=== PATIENT | female | born 1945 | race Caucasian/White ===

== ENCOUNTER 2017-11-29 19:25 | Inpatient (IN) | payer MEDICARE ==
[~2017-11-29] VITALS: Ht 165.1 cm; Wt 76.2 kg
[2017-11-29] MEDS ORDERED: GABA-827 PO (19:41)
[2017-11-29] MEDS ORDERED: FLUT1DIS5 IH (19:41)
[2017-11-29] MEDS ORDERED: ATEN25TA PO (19:42)
[2017-11-29] MEDS ORDERED: METF500T4 PO (19:42)
[2017-11-29] MEDS ORDERED: ALBU0.63 NEB (19:42)
[2017-11-29] MEDS ORDERED: PLEASE ENTER ALLERGIES MC SCH (20:00)
[2017-11-29] MEDS ORDERED: SODIUM CHLORIDE FLUSH 10ML SYR IVF ONE (20:00)
[2017-11-29 20:11] LABS: BASOPHILS # (AUTO) 0.05 x10^3/uL (0-0.1); BASOPHILS % (AUTO) 0 % (0-1); EOSINOPHILS # (AUTO) 0.09 x10^3/uL (0-0.4); EOSINOPHILS % (AUTO) 1 % (1-7); LYMPHOCYTES # (AUTO) 2.61 x10^3/uL (1-3.4); LYMPHOCYTES % (AUTO) 19 % (22-44); MD NO; MEAN CORPUSCULAR HEMOGLOBIN 29.4 pg (27.0-34.8); MEAN CORPUSCULAR HGB CONC 33.7 g/dL (32.4-35.8); MEAN CORPUSCULAR VOLUME 87.3 fL (80-100); MEAN PLATELET VOLUME 8.3 fL (7.4-10.4); MONOCYTES # (AUTO) 0.71 x10^3/uL (0.2-0.8); MONOCYTES % (AUTO) 5 % (2-9); NEUTROPHILS # (AUTO) 9.98 x10^3/uL (1.8-6.8); NEUTROPHILS % (AUTO) 74 % (42-75); PLATELET COUNT 288 x10^3/uL (130-400); RED BLOOD COUNT 4.75 x10^6/uL (3.82-5.3); RED CELL DISTRIBUTION WIDTH 14.6 % (9.6-15.2)
[2017-11-29 20:14] LABS: PROTHROMBIN TIME 10.3 Seconds (9.6-11.5)
[2017-11-29 20:18] LABS: ALBUMIN 3.4 g/dL (3.4-5.0); ANION GAP 5 mmol/L (5-15); CALCIUM 8.3 mg/dL (8.5-10.1); CHLORIDE 106 mmol/L (98-107); CREATININE 0.57 mg/dL (0.55-1.02)
[2017-11-29] MEDS ORDERED: SODIUM CHLORIDE FLUSH 10ML SYR IVF PRN (21:00)
[2017-11-29] MEDS ORDERED: GLUCAGON 1 MG IM PRN (21:30)
[2017-11-29] MEDS ORDERED: ONDANSETRON 2MG/ML, 2ML IVPush PRN (21:30)
[2017-11-29] MEDS ORDERED: DEXTROSE 50%, 50ML SYRINGE IVPush PRN (21:30)
[2017-11-29] MEDS ORDERED: morphine SULFATE 10 MG/ML, 1ML IVPush PRN (21:30)
[2017-11-29] MEDS ORDERED: ACETAMINOPHEN 325 MG TABLET PO PRN (21:30)
[2017-11-29] MEDS ORDERED: DEXTROSE 4 GM TAB.CHEW PO PRN (21:30)
[2017-11-29] MEDS ORDERED: ALBUTEROL SULFATE 2.5MG/0.5ML NEB PRN (21:30)
[2017-11-29 22:20] VITALS: BP 143/101
[2017-11-29] MEDS: HEPARIN 5,000 UNITS/ML, 1ML SQ SCH (22:45)
[2017-11-29] MEDS: SODIUM CHLORIDE 0.9% 1,000 ML IV SCH (22:45)
[2017-11-29] MEDS: GABAPENTIN 400 MG CAPSULE PO SCH (22:45)
[2017-11-29] MEDS: metFORMIN 500 MG TABLET PO SCH (22:45)
[2017-11-29] MEDS: OXYcodone IR 5MG TABLET PO PRN (23:03)
[2017-11-29] MEDS ORDERED: NAPR220C2 PO (23:37)
[2017-11-29] MEDS: INSULIN LISPRO 100 UNITS/ML, PEN SQ-INSULIN SCH (23:47)
[2017-11-30 04:01] VITALS: BP 158/71
[2017-11-30 05:24] LABS: BASOPHILS # (AUTO) 0.03 x10^3/uL (0-0.1); BASOPHILS % (AUTO) 0 % (0-1); EOSINOPHILS # (AUTO) 0.09 x10^3/uL (0-0.4); EOSINOPHILS % (AUTO) 1 % (1-7); LYMPHOCYTES # (AUTO) 2.31 x10^3/uL (1-3.4); LYMPHOCYTES % (AUTO) 27 % (22-44); MD NO; MEAN CORPUSCULAR HEMOGLOBIN 29.4 pg (27.0-34.8); MEAN CORPUSCULAR HGB CONC 33.6 g/dL (32.4-35.8); MEAN CORPUSCULAR VOLUME 87.4 fL (80-100); MEAN PLATELET VOLUME 8.4 fL (7.4-10.4); MONOCYTES # (AUTO) 0.52 x10^3/uL (0.2-0.8); MONOCYTES % (AUTO) 6 % (2-9); NEUTROPHILS # (AUTO) 5.72 x10^3/uL (1.8-6.8); NEUTROPHILS % (AUTO) 66 % (42-75); PLATELET COUNT 244 x10^3/uL (130-400); RED BLOOD COUNT 4.51 x10^6/uL (3.82-5.3); RED CELL DISTRIBUTION WIDTH 14.6 % (9.6-15.2)
[2017-11-30 05:28] LABS: CHLORIDE 103 mmol/L (98-107)
[2017-11-30] MEDS: HEPARIN 5,000 UNITS/ML, 1ML SQ SCH ×2 (05:30→07:11)
[2017-11-30 05:32] LABS: ANION GAP 7 mmol/L (5-15); CALCIUM 8.2 mg/dL (8.5-10.1); CREATININE 0.53 mg/dL (0.55-1.02)
[2017-11-30] MEDS: GABAPENTIN 400 MG CAPSULE PO SCH ×4 (06:31→20:21)
[2017-11-30] MEDS: OXYcodone IR 5MG TABLET PO PRN ×4 (06:31→22:58)
[2017-11-30] MEDS ORDERED: INSULIN LISPRO 100 UNITS/ML, PEN SQ-INSULIN SCH ×2 (07:00→22:45)
[2017-11-30 07:25] VITALS: BP 144/73
[2017-11-30] MEDS: INSULIN LISPRO 100 UNITS/ML, PEN SQ-INSULIN SCH ×4 (07:48→20:51)
[2017-11-30] MEDS: POLYETHYLENE GLYCOL 17 GM PACKET PO SCH (07:48)
[2017-11-30] MEDS: metFORMIN 500 MG TABLET PO SCH ×2 (07:48→20:21)
[2017-11-30] MEDS: ATENOLOL 25 MG TABLET PO SCH (07:54)
[2017-11-30 08:53] LABS: HEMOGLOBIN A1C 7.5 % (4.2-6.3)
[2017-11-30] MEDS: SODIUM CHLORIDE 0.9% 1,000 ML IV SCH ×2 (11:24→20:21)
[2017-11-30] MEDS: SODIUM CHLORIDE FLUSH 10ML SYR IVF SCH ×2 (11:24→20:21)
[2017-11-30] MEDS: SALMETEROL IH SCH (11:24)
[2017-11-30] MEDS: FLUTICASONE IH SCH (11:24)
[2017-11-30] MEDS ORDERED: ONDANSETRON 2MG/ML, 2ML ONE (11:44)
[2017-11-30] MEDS ORDERED: ONDANSETRON ODT 4 MG PO PRN (12:00)
[2017-11-30] MEDS ORDERED: ONDANSETRON 2MG/ML, 2ML IVPush PRN (12:00)
[2017-11-30 12:44] VITALS: BP 137/97
[2017-11-30 19:46] VITALS: BP 185/67
[2017-11-30] MEDS ORDERED: hydrOXyzine 50MG TABLET PO PRN (20:00)
[2017-12-01 01:29] VITALS: BP 153/69
[2017-12-01] MEDS: GABAPENTIN 400 MG CAPSULE PO SCH ×4 (06:15→21:04)
[2017-12-01] MEDS: OXYcodone IR 5MG TABLET PO PRN (06:15)
[2017-12-01] MEDS: SODIUM CHLORIDE 0.9% 1,000 ML IV SCH ×2 (06:15→13:08)
[2017-12-01] MEDS: INSULIN LISPRO 100 UNITS/ML, PEN SQ-INSULIN SCH ×4 (06:49→23:00)
[2017-12-01 06:56] VITALS: BP 136/68
[2017-12-01 07:58] LABS: ALANINE AMINOTRANSFERASE 23 U/L (12-78); ANION GAP 6 mmol/L (5-15); CHLORIDE 103 mmol/L (98-107); CREATININE 0.65 mg/dL (0.55-1.02)
[2017-12-01 08:00] LABS: ALKALINE PHOSPHATASE 80 U/L (45-117); BILIRUBIN,TOTAL 0.2 mg/dL (0.2-1.0); TOTAL PROTEIN 6.6 g/dL (6.4-8.2)
[2017-12-01] MEDS: ATENOLOL 25 MG TABLET PO SCH (08:59)
[2017-12-01] MEDS: SODIUM CHLORIDE FLUSH 10ML SYR IVF SCH ×2 (09:00→21:04)
[2017-12-01] MEDS: metFORMIN 500 MG TABLET PO SCH ×2 (09:00→21:04)
[2017-12-01] MEDS: SALMETEROL IH SCH (09:00)
[2017-12-01] MEDS: POLYETHYLENE GLYCOL 17 GM PACKET PO SCH (09:00)
[2017-12-01] MEDS: FLUTICASONE IH SCH (09:00)
[2017-12-01] MEDS ORDERED: KETOROLAC 60 MG/2 ML ONE (12:14)
[2017-12-01] MEDS ORDERED: TRANEXAMIC ACID 100 MG/ML, 10ML ONE ×4 (12:14→12:15)
[2017-12-01] MEDS ORDERED: EPINEPHRINE 1 MG/ML, 1ML ONE (12:15)
[2017-12-01] MEDS ORDERED: ROPIvacaine/PF 0.2%, 20 ML ONE (12:15)
[2017-12-01] MEDS ORDERED: SODIUM CHLORIDE 0.9% 100 ML ONE (12:15)
[2017-12-01] MEDS ORDERED: FENTANYL PF 250 MCG/5ML ONE (13:01)
[2017-12-01] MEDS ORDERED: MIDAZOLAM 1 MG/ML, 2ML ONE (13:01)
[2017-12-01] MEDS ORDERED: LIDOCAINE-MPF 2% ,5ML ONE (13:02)
[2017-12-01] MEDS ORDERED: LIDOCAINE 4%, 4 ML SYR/CANN TP ONE (13:02)
[2017-12-01] MEDS ORDERED: DEXAMETHASONE 4 MG/ML, 1ML ONE (13:02)
[2017-12-01] MEDS ORDERED: SUCCINYLCHOLINE 20 MG/ML, 10ML ONE (13:02)
[2017-12-01] MEDS ORDERED: PROPOFOL 10 MG/ML, 20ML ONE (13:02)
[2017-12-01] MEDS ORDERED: CEFAZOLIN 1,000 MG ONE (13:02)
[2017-12-01] MEDS ORDERED: ONDANSETRON 2MG/ML, 2ML ONE (13:02)
[2017-12-01] MEDS ORDERED: PHENYLEPHRINE 10 MG/ML ONE (13:02)
[2017-12-01] MEDS ORDERED: morphine SULFATE 10 MG/ML, 1ML IV PRN (14:00)
[2017-12-01] MEDS ORDERED: ONDANSETRON 2MG/ML, 2ML IVPush PRN (14:00)
[2017-12-01] MEDS ORDERED: ACETAMINOPHEN 325 MG TABLET PO PRN (14:00)
[2017-12-01] MEDS ORDERED: HYDROcodone/APAP 7.5-325MG/15ML UDC PO PRN (14:00)
[2017-12-01] MEDS ORDERED: FENTANYL PF 100 MCG/2ML IV PRN (14:00)
[2017-12-01] MEDS ORDERED: OXYcodone 5 MG/5 ML ORAL.SOL UDC PO PRN (14:00)
[2017-12-01] MEDS ORDERED: TRANEXAMIC ACID 100 MG/ML, 10ML IV STA (14:54)
[2017-12-01] MEDS ORDERED: TRANEXAMIC ACID 1,000 MG in SODIUM CHLORIDE 0.9% 100 ML IV ONE (15:30)
[2017-12-01] MEDS ORDERED: LABETALOL 5MG/ML, 20ML ONE (16:25)
[2017-12-01] MEDS ORDERED: OXYcodone 5 MG/5 ML ORAL.SOL UDC ONE (16:44)
[2017-12-01] MEDS ORDERED: LORazepam 2 MG/ML, 1ML IVPush PRN ×2 (17:00→17:30)
[2017-12-01 17:25] VITALS: BP 149/75
[2017-12-01] MEDS ORDERED: hydrOXyzine 50MG TABLET PO PRN (17:30)
[2017-12-01] MEDS ORDERED: ENALAPRILAT 1.25 MG/ML, 2ML IV PRN (17:30)
[2017-12-01] MEDS ORDERED: LABETALOL 5MG/ML, 20ML IVPush PRN (17:30)
[2017-12-01] MEDS ORDERED: ALBUTEROL/IPRATROPIUM 2.5MG/0.5MG, 3 ML ONE (18:24)
[2017-12-02] MEDS: SODIUM CHLORIDE 0.9% 1,000 ML IV SCH ×2 (02:00→12:00)
[2017-12-02 02:20] VITALS: BP 154/77
[2017-12-02] MEDS: OXYcodone IR 5MG TABLET PO PRN ×4 (05:26→15:44)
[2017-12-02] MEDS: GABAPENTIN 400 MG CAPSULE PO SCH ×2 (05:26→11:52)
[2017-12-02 06:38] VITALS: BP 178/82
[2017-12-02] MEDS: hydrALAzine 20 MG/ML, 1ML IVPush PRN ×2 (06:49→11:24)
[2017-12-02] MEDS: ASPIRIN 81 MG TABLET EC PO SCH ×2 (07:32→09:31)
[2017-12-02] MEDS: INSULIN LISPRO 100 UNITS/ML, PEN SQ-INSULIN SCH ×2 (07:48→11:44)
[2017-12-02] MEDS: SALMETEROL IH SCH (09:00)
[2017-12-02] MEDS: FLUTICASONE IH SCH (09:00)
[2017-12-02] MEDS: ATENOLOL 25 MG TABLET PO SCH (09:29)
[2017-12-02] MEDS: POLYETHYLENE GLYCOL 17 GM PACKET PO SCH (09:30)
[2017-12-02] MEDS: metFORMIN 500 MG TABLET PO SCH (09:30)
[2017-12-02] MEDS: SODIUM CHLORIDE FLUSH 10ML SYR IVF SCH (09:34)
[2017-12-02 10:49] VITALS: BP 174/74
[2017-12-02 12:56] VITALS: BP 148/69
[2017-12-02 13:43] VITALS: BP 167/67
[2017-12-02 15:40] VITALS: BP 156/78
== END 2017-12-02 16:07 | disposition home health service (06) | DRG 470 ==
LOC: ED 20:50 → SUATTDRO 21:07 → 4NOR 21:38 → EDIP 22:08 → ED 22:08 → 4NOR 22:14 → DCLOUNGE 12-02 15:56
PROVIDERS: ADMIT Hospitalist; ATTEND Hospitalist
PROC: 0QS604Z Reposition Right Upper Femur with Internal Fixation Device, Open Approach (ICD-10-PCS; 2017-12-01)
PROC: 0SC90ZZ Extirpation of Matter from Right Hip Joint, Open Approach (ICD-10-PCS; 2017-12-01)
PROC: 0SR903Z Replacement of Right Hip Joint with Ceramic Synthetic Substitute, Open Approach (ICD-10-PCS; principal; 2017-12-01 13:00)
DX: S72.001A Fracture of unspecified part of neck of right femur, initial encounter for closed fracture (principal); E44.0 Moderate protein-calorie malnutrition; E11.40 Type 2 diabetes mellitus with diabetic neuropathy, unspecified; Z99.81 Dependence on supplemental oxygen; J44.9 Chronic obstructive pulmonary disease, unspecified; F17.210 Nicotine dependence, cigarettes, uncomplicated; I10 Essential (primary) hypertension; W18.30XA Fall on same level, unspecified, initial encounter; R11.2 Nausea with vomiting, unspecified; Z68.28 Body mass index [BMI] 28.0-28.9, adult; Y92.009 Unspecified place in unspecified non-institutional (private) residence as the place of occurrence of the external cause
CPT/HCPCS: 36415; 71045; 72170; 80048; 80053; 82040; 82962; 83036; 83735; 84100; 85025; 85610; 85730; 86850; 86900; 93005; 99285; C1713; J0171; J0690; J1100; J1644; J1885; J2250; J2405; J2704; J2795; J3010; J3490; C1776; J0330; J0360; J1815; J2060; J2370; J7030